=== PATIENT | male | born 2000 | race Caucasian/White ===

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

== ENCOUNTER 2019-01-13 08:32 | Emergency (ER) | payer SELFPAY ==
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
[2019-01-13 09:39] VITALS: BP 126/79; TEMP 99.3; O2SAT 98
[2019-01-13] MEDS ORDERED: ACETAMINOPHEN 500 MG TAB ONE (09:39)
== END 2019-01-13 09:29 | disposition home or self-care (01) ==
LOC: ER 08:32
DX: M62.830 Muscle spasm of back (principal); V59.9XXA Occupant (driver) (passenger) of pick-up truck or van injured in unspecified traffic accident, initial encounter; F17.210 Nicotine dependence, cigarettes, uncomplicated
CPT/HCPCS: 99284

== ENCOUNTER 2019-02-02 11:35 | Emergency (ER) | payer SELFPAY ==
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
--- NOTE | 2019-02-02 11:50 | EDPHYS ---
Physician Documentation [facility] Name: Walt Ramirez Jr Age: 18 yrs Sex: Male : 2000 Arrival Date: 02/02/2019 Time: 11:38 Bed 20 Private MD: ED Physician Jermaine Weir HPI: 02/02 12:02 This 18 yrs old Male presents to ER via Ambulatory with complaints of Rash. kb 12:02 The patient's rash thought to be caused by Contact allergy. The rash is located on the kb body diffusely. Onset: The symptoms/episode began/occurred 2 day(s) ago. Associated signs and symptoms: Pertinent positives: itching. Severity of symptoms: At their worst the symptoms were moderate in the emergency department the symptoms are unchanged. Treatment given at home: OTC lotion/cream. The patient has not experienced similar symptoms in the past. The patient has not recently seen a physician. Historical: - Allergies: 11:42 No Known Allergies; aj - Home Meds: 11:42 None [Active]; aj - PMHx: 11:42 ADD/ADHD; Asthma; aj - PSHx: 11:42 None; aj - Immunization history:: Adult Immunizations up to date, Last tetanus immunization: up to date. - Social history:: Smoking status: Patient/guardian denies using tobacco. - Ebola Screening: : Patient negative for fever greater than or equal to 101.5 degrees Fahrenheit, and additional compatible Ebola Virus Disease symptoms Patient denies exposure to infectious person Patient denies travel to an Ebola-affected area in the 21 days before illness onset No symptoms or risks identified at this time. ROS: 12:01 Constitutional: Negative for fever, chills, and weight loss, Cardiovascular: Negative kb for chest pain, palpitations, and edema, Respiratory: Negative for shortness of breath, cough, wheezing, and pleuritic chest pain, Abdomen/GI: Negative for abdominal pain, nausea, vomiting, diarrhea, and constipation, MS/Extremity: Negative for injury and deformity, Neuro: Negative for headache, weakness, numbness, tingling, and seizure. 12:01 Skin: Positive for rash, diffusely. Exam: 12:01 Constitutional: This is a well developed, well nourished patient who is awake, alert, kb and in no acute distress. Head/Face: Normocephalic, atraumatic. Chest/axilla: Normal chest wall appearance and motion. Nontender with no deformity. No lesions are appreciated. Cardiovascular: Regular rate and rhythm with a normal S1 and S2. No gallops, murmurs, or rubs. Normal PMI, no JVD. No pulse deficits. Respiratory: Lungs have equal breath sounds bilaterally, clear to auscultation and percussion. No rales, rhonchi or wheezes noted. No increased work of breathing, no retractions or nasal flaring. Abdomen/GI: Soft, non-tender, with normal bowel sounds. No distension or tympany. No guarding or rebound. No evidence of tenderness throughout. Back: No spinal tenderness. No costovertebral tenderness. Full range of motion. MS/ Extremity: Pulses equal, no cyanosis. Neurovascular intact. Full, normal range of motion. Neuro: Awake and alert, GCS 15, oriented to person, place, time, and situation. Cranial nerves II-XII grossly intact. Motor strength 5/5 in all extremities. Sensory grossly intact. Cerebellar exam normal. Normal gait. 12:01 Skin: rash a moderate rash is noted, consistent with contact dermatitis, and is diffusely located. Vital Signs: 11:42 BP 131 / 75; Pulse 75; Resp 19; Temp 98.8; Pulse Ox 100% on R/A; Weight 86.18 kg; aj Height 6 ft. 0 in. (182.88 cm); 12:11 BP 130 / 70; Pulse 74; Resp 18; Pulse Ox 100% on R/A; hj 11:42 Body Mass Index 25.77 (86.18 kg, 182.88 cm) aj MDM: 11:45 Patient medically screened. kb 12:00 Data reviewed: vital signs, nurses notes. Data interpreted: Pulse oximetry: on room air kb is 100 %. Interpretation: normal. Counseling: I had a detailed discussion with the patient and/or guardian regarding: the historical points, exam findings, and any diagnostic results supporting the discharge/admit diagnosis, the need for outpatient follow up, a family practitioner, to return to the emergency department if symptoms worsen or persist or if there are any questions or concerns that arise at home. Administered Medications: 12:05 Drug: SOLU-Medrol 125 mg Route: IM; Site: left gluteus; aa5 12:11 Follow up: Response: No adverse reaction 12:06 Drug: Pepcid 20 mg Route: PO; aa5 12:11 Follow up: Response: No adverse reaction Disposition: 12:17 Co-signature as Attending Physician, Jermaine Weir MD. rn Disposition: 02/02/19 11:49 Discharged to Home. Impression: Allergic contact dermatitis due to plants, except food. - Condition is Stable. - Discharge Instructions: Poison Elizabeth Dermatitis, [id number], Contact Dermatitis, [id number]. - Prescriptions for Pepcid 20 mg Oral Tablet - take 1 tablet by ORAL route every 12 hours for 5 days; 10 tablet. Prednisone 20 mg Oral Tablet - take 1 tablet by ORAL route once daily for 5 days; 5 tablet. - Medication Reconciliation Form, Thank You Letter, Antibiotic Education, Prescription Opioid Use form. - Follow up: Emergency Department; When: As needed; Reason: Worsening of condition. Follow up: Private Physician; When: 2 - 3 days; Reason: Recheck today's complaints, Continuance of care, Re-evaluation by your physician. Signatures: Ashley Jensen, CORPORATE DEVELOPMENT ASSOCIATE-C CORPORATE DEVELOPMENT ASSOCIATE-Ckb Lala Conti, RN Jermaine Aviles MD MD rn Calderon, Audri, RN RN aaGabino Hdez RN RN Corrections: (The following items were deleted from the chart) 12:13 11:49 02/02/2019 11:49 Discharged to Home. Impression: Allergic contact dermatitis due hj to plants, except food. Condition is Stable. Forms are Medication Reconciliation Form, Thank You Letter, Antibiotic Education, Prescription Opioid Use. Follow up: Emergency Department; When: As needed; Reason: Worsening of condition. Follow up: Private Physician; When: 2 - 3 days; Reason: Recheck today's complaints, Continuance of care, Re-evaluation by your physician. kb
[2019-02-02] MEDS ORDERED: METHYLPREDNISOLONE 125 MG INJ ONE (12:14)
[2019-02-02] MEDS ORDERED: FAMOTIDINE 20 MG TAB ONE (12:14)
[2019-02-02 12:20] VITALS: TEMP 98.8; O2SAT 100
[2019-02-02 12:22] VITALS: BP 130/70
== END 2019-02-02 12:13 | disposition home or self-care (01) ==
LOC: ER 11:35
DX: L23.7 Allergic contact dermatitis due to plants, except food (principal)
CPT/HCPCS: 96372; 99282; J2930

== ENCOUNTER 2019-11-03 03:34 | Emergency (ER) | payer SELFPAY ==
[2019-11-03] MEDS ORDERED: LIDOCAINE 1% W/EPI 1:100,000 MDV 20 ML VIAL ONE (04:14)
[2019-11-03] MEDS ORDERED: BUPIVACAINE 0.5% PF 10 ML VIAL ONE (04:17)
[2019-11-03] MEDS ORDERED: LIDOCAINE 1% MPF 5 ML VIAL ONE (04:17)
[2019-11-03] MEDS ORDERED: SMZ./TMP. 800/160 MG TABLET ONE (04:29)
[2019-11-03] MEDS ORDERED: DOXYCYCLINE 100 MG CAP PO ONE (04:29)
--- NOTE | 2019-11-03 04:58 | ER ---
Nurse's Notes [facility] Name: Walt Ramirez Jr Age: 19 yrs Sex: Male : 2000 Arrival Date: 11/03/2019 Time: 03:41 Bed 3 Private MD: Diagnosis: Cutaneous abscess of right hand-right index finger Presentation: 11/03 03:57 Presenting complaint: Patient states: I have had a blister for the past to days o my jb4 right index finger. I let it go thinking it would get better but it got worse. Now my finger is swollen and there is pus coming out. Transition of care: patient was not received from another setting of care. Onset of symptoms was November 01, 2019. Risk Assessment: Do you want to hurt yourself or someone else? Patient reports no desire to harm self or others. Initial Sepsis Screen: Does the patient meet any 2 criteria? No. Patient's initial sepsis screen is negative. Does the patient have a suspected source of infection? No. Patient's initial sepsis screen is negative. Care prior to arrival: None. 03:57 Method Of Arrival: Ambulatory jb4 03:57 Acuity: INDU 4 jb4 Historical: - Allergies: 04:01 No Known Allergies; jb4 - Home Meds: 04:01 None [Active]; jb4 - PMHx: 04:01 ADD/ADHD; Asthma; jb4 - PSHx: 04:01 wisdom teeth; jb4 - Immunization history:: Adult Immunizations up to date. - Coronavirus screen:: The patient has NOT traveled to [place] in the past 14 days. Proceed with normal triage process as indicated. The patient has NOT had contact with known/suspected case of Coronavirus? Proceed with normal triage procedures. - Social history:: Smoking status: Patient reports the use of cigarette tobacco products, smokes one-half pack cigarettes per day, Patient/guardian denies using alcohol, street drugs. - Family history:: not pertinent. - Ebola Screening: : No symptoms or risks identified at this time. Screenin:02 Abuse screen: Denies threats or abuse. Nutritional screening: No deficits noted. jb4 Tuberculosis screening: No symptoms or risk factors identified. Fall Risk None identified. Assessment: 04:02 General: Appears in no apparent distress. uncomfortable, Behavior is calm, cooperative, jb4 appropriate for age. Pain: Complains of pain in dorsal aspect of middle phalanx of right index finger and palmar aspect of middle phalanx of right index finger Pain does not radiate. Pain currently is 9 out of 10 on a pain scale. Quality of pain is described as throbbing, Pain began 2-3 days ago. Is continuous. Neuro: Level of Consciousness is awake, alert, obeys commands, Oriented to person, place, time, situation. Cardiovascular: Patient's skin is warm and dry. Respiratory: Airway is patent Respiratory effort is even, unlabored, Respiratory pattern is regular, symmetrical. GI: No signs and/or symptoms were reported involving the gastrointestinal system. : No signs and/or symptoms were reported regarding the genitourinary system. EENT: No signs and/or symptoms were reported regarding the EENT system. Derm: Skin is pink, warm \T\ dry. Musculoskeletal: Circulation, motion, and sensation intact. Range of motion: intact in all extremities, Swelling present in dorsal aspect of middle phalanx of right index finger and palmar aspect of middle phalanx of right index finger. 05:11 Reassessment: Patient appears in no apparent distress at this time. Patient and/or jb4 family updated on plan of care and expected duration. Pain level reassessed. Patient is alert, oriented x 3, equal unlabored respirations, skin warm/dry/pink. Pt verbalized understanding of d/c and follow up instructions. Ambulated out of ED with steady gait. Vital Signs: 04:01 BP 129 / 88; Pulse 71; Resp 16; Temp 98.1(O); Pulse Ox 100% on R/A; Weight 77.11 kg jb4 (R); Height 6 ft. 0 in. (182.88 cm); Pain 9/10; 04:01 Body Mass Index 23.06 (77.11 kg, 182.88 cm) jb4 ED Course: 03:41 Patient arrived in ED. ag3 03:42 Cortez Royal MD is Attending Physician. shailesh 03:49 Dick Reyes, MYAH is Primary Nurse. jb4 03:59 Triage completed. jb4 04:01 Arm band placed on right wrist. jb4 04:02 Patient has correct armband on for positive identification. Bed in low position. Call jb4 light in reach. Side rails up X 1. Pulse ox on. NIBP on. 04:02 Ice pack to injury. jb4 04:33 Hand Right 3 View XRAY In Process Unspecified. EDMS 04:37 Assist provider with I \T\ D: of an abscess on Right index finger. Set up I\T\D tray. yokasta 4 Performed by Cortez Royal MD Culture sent to lab. Wound packed. iodoform gauze, Dressing with 4X4s. 04:57 Ryan Poe MD is Referral Physician. [facility] 05:11 Patient did not have IV access during this emergency room visit. jb4 Administered Medications: 04:28 Drug: Doxycycline 200 mg Route: PO; jb4 05:11 Follow up: Response: No adverse reaction jb4 04:28 Drug: Bactrim (160 mg-800 mg (DS) 1 tablet Route: PO; jb4 05:10 Follow up: Response: No adverse reaction jb4 04:33 Drug: Bupivacaine (0.5 %) 5 ml {Note: Administered by ED provider..} Volume: 10 ml; jb4 Route: Infiltration; 05:11 Follow up: Response: No adverse reaction jb4 04:33 Drug: Lidocaine (1 %) 5 ml {Note: Administered by ED provider..} Volume: 5 ml; Route: jb4 Infiltration; 05:11 Follow up: Response: No adverse reaction jb4 Outcome: 04:57 Discharge ordered by . [facility] 05:11 Discharged to home ambulatory, with friend. jb4 05:11 Condition: stable 05:11 Discharge instructions given to patient, Instructed on discharge instructions, follow up and referral plans. medication usage, Demonstrated understanding of instructions, follow-up care, medications, Prescriptions given X 3. 05:12 Patient left the ED. jb4 Addendum: 11/07/2019 10:12 Addendum: Culture Results: Positive urine culture. No further action required. Bacteria i w sensitive to prescribed antibiotic. Signatures: Dispatcher [employer] EDMS Cortez Royal MD MD cha Williams, Irene, RN RN iw Bryson, James, RN RN jb4 Yasemin Jarrell 3
--- NOTE | 2019-11-03 04:58 | EDPHYS ---
Physician Documentation [facility] Name: Walt Ramirez Jr Age: 19 yrs Sex: Male : 2000 Arrival Date: 11/03/2019 Time: 03:41 Bed 3 Private MD: ED Physician Cortez Royal HPI: 11/03 04:05 This 19 yrs old Male presents to ER via Ambulatory with complaints of Finger shailesh Injury. 04:05 Trauma demographics: County: The injury occurred in [place]. Mechanism of injury: shailesh blister. Associated injuries: The patient sustained palmar aspect of middle phalanx of right index finger, decreased range of motion, painful injury, swelling. Historical: - Allergies: 04:01 No Known Allergies; jb4 - Home Meds: 04:01 None [Active]; jb4 - PMHx: 04:01 ADD/ADHD; Asthma; jb4 - PSHx: 04:01 wisdom teeth; jb4 - Immunization history:: Adult Immunizations up to date. - Coronavirus screen:: The patient has NOT traveled to [place] in the past 14 days. Proceed with normal triage process as indicated. The patient has NOT had contact with known/suspected case of Coronavirus? Proceed with normal triage procedures. - Social history:: Smoking status: Patient reports the use of cigarette tobacco products, smokes one-half pack cigarettes per day, Patient/guardian denies using alcohol, street drugs. - Family history:: not pertinent. - Ebola Screening: : No symptoms or risks identified at this time. ROS: 04:05 Constitutional: Negative for fever, chills, and weight loss, Eyes: Negative for injury, shailesh pain, redness, and discharge, ENT: Negative for injury, pain, and discharge, Neck: Negative for injury, pain, and swelling, Cardiovascular: Negative for chest pain, palpitations, and edema, Respiratory: Negative for shortness of breath, cough, wheezing, and pleuritic chest pain, Abdomen/GI: Negative for abdominal pain, nausea, vomiting, diarrhea, and constipation, Back: Negative for injury and pain, : Negative for injury, bleeding, discharge, and swelling, Skin: Negative for injury, rash, and discoloration, Neuro: Negative for headache, weakness, numbness, tingling, and seizure, Psych: Negative for depression, anxiety, suicide ideation, homicidal ideation, and hallucinations, Allergy/Immunology: Negative for hives, rash, and allergies, Endocrine: Negative for neck swelling, polydipsia, polyuria, polyphagia, and marked weight changes, Hematologic/Lymphatic: Negative for swollen nodes, abnormal bleeding, and unusual bruising. 04:05 MS/extremity: Positive for decreased range of motion, pain, swelling, tenderness, of the right hand and palmar aspect of middle phalanx of right index finger. Exam: 04:05 Constitutional: This is a well developed, well nourished patient who is awake, alert, shailesh and in no acute distress. Head/Face: Normocephalic, atraumatic. Eyes: Pupils equal round and reactive to light, extra-ocular motions intact. Lids and lashes normal. Conjunctiva and sclera are non-icteric and not injected. Cornea within normal limits. Periorbital areas with no swelling, redness, or edema. ENT: Nares patent. No nasal discharge, no septal abnormalities noted. Tympanic membranes are normal and external auditory canals are clear. Oropharynx with no redness, swelling, or masses, exudates, or evidence of obstruction, uvula midline. Mucous membranes moist. Neck: Trachea midline, no thyromegaly or masses palpated, and no cervical lymphadenopathy. Supple, full range of motion without nuchal rigidity, or vertebral point tenderness. No Meningismus. Chest/axilla: Normal chest wall appearance and motion. Nontender with no deformity. No lesions are appreciated. Cardiovascular: Regular rate and rhythm with a normal S1 and S2. No gallops, murmurs, or rubs. Normal PMI, no JVD. No pulse deficits. Respiratory: Lungs have equal breath sounds bilaterally, clear to auscultation and percussion. No rales, rhonchi or wheezes noted. No increased work of breathing, no retractions or nasal flaring. Abdomen/GI: Soft, non-tender, with normal bowel sounds. No distension or tympany. No guarding or rebound. No evidence of tenderness throughout. Back: No spinal tenderness. No costovertebral tenderness. Full range of motion. Male : Normal genitalia with no discharge or lesions. Skin: Warm, dry with normal turgor. Normal color with no rashes, no lesions, and no evidence of cellulitis. Neuro: Awake and alert, GCS 15, oriented to person, place, time, and situation. Cranial nerves II-XII grossly intact. Motor strength 5/5 in all extremities. Sensory grossly intact. Cerebellar exam normal. Normal gait. Psych: Awake, alert, with orientation to person, place and time. Behavior, mood, and affect are within normal limits. 04:05 Musculoskeletal/extremity: ROM: limited active range of motion due to pain, limited passive range of motion due to pain, Circulation is intact in all extremities. Sensation intact. Compartment Syndrome exam of affected extremity: is normal. Vital Signs: 04:01 BP 129 / 88; Pulse 71; Resp 16; Temp 98.1(O); Pulse Ox 100% on R/A; Weight 77.11 kg jb4 (R); Height 6 ft. 0 in. (182.88 cm); Pain 9/10; 04:01 Body Mass Index 23.06 (77.11 kg, 182.88 cm) jb4 Procedures: 04:05 I \T\ D: Incision and drainage was performed for an abscess of the right palmar aspect of shailesh middle phalanx of right index finger Prepped with Betadine, Anesthetized with 3 ml's 1% Lidocaine. .5% MARCAINE. Incised with #11 blade. Drained small amount purulent fluid. Packed with iodoform gauze, Dressing: non-Adherent dressing, the patient tolerated the procedure well. MDM: 03:42 Patient medically screened. [facility] 04:05 Data reviewed: vital signs, nurses notes, radiologic studies. [facility] 11/03 04:20 Order name: Wound Culture [facility] 11/03 04:15 Order name: Hand Right 3 View XRAY [facility] 11/03 04:15 Order name: Dressing - Wound; Complete Time: 05:11 [facility] 11/03 04:15 Order name: Gloves, Sterile; Complete Time: 04:23 [facility] 11/03 04:15 Order name: Setup Suture Tray; Complete Time: 04:21 [facility] 11/03 04:15 Order name: Wound Care; Complete Time: 05:10 [facility] Administered Medications: 04:28 Drug: Doxycycline 200 mg Route: PO; jb4 05:11 Follow up: Response: No adverse reaction 4 04:28 Drug: Bactrim (160 mg-800 mg (DS) 1 tablet Route: PO; jb4 05:10 Follow up: Response: No adverse reaction jb4 04:33 Drug: Bupivacaine (0.5 %) 5 ml {Note: Administered by ED provider..} Volume: 10 ml; jb4 Route: Infiltration; 05:11 Follow up: Response: No adverse reaction jb4 04:33 Drug: Lidocaine (1 %) 5 ml {Note: Administered by ED provider..} Volume: 5 ml; Route: jb4 Infiltration; 05:11 Follow up: Response: No adverse reaction jb4 Disposition: 11/03/19 04:57 Discharged to Home. Impression: Cutaneous abscess of right hand - right index finger. - Condition is Stable. - Discharge Instructions: Skin Abscess, Incision and Drainage, Skin Abscess, [id number], Incision and Drainage, Care After. - Prescriptions for Tylenol- Codeine #3 300-30 mg Oral Tablet - take 2 tablets by ORAL route every 6 hours As needed; 26 tablet. Doxycycline Hyclate 100 mg Oral Tablet - take 1 tablet by ORAL route every 12 hours; 20 tablet. Bactrim DS 800- 160 mg Oral Tablet - take 1 tablet by ORAL route every 12 hours for 10 days; 20 tablet. - Medication Reconciliation Form, Thank You Letter, Antibiotic Education, Prescription Opioid Use form. - Follow up: Private Physician; When: 2 - 3 days; Reason: Recheck today's complaints, Continuance of care, Re-evaluation by your physician. Follow up: Ryan Poe; When: 2 - 3 days; Reason: Recheck today's complaints, Re-evaluation by your physician. - Problem is new. - Symptoms have improved. Signatures: Dispatcher [employer] EDMS Cortez Royal MD MD cha Bryson, James, RN RN jb4 Corrections: (The following items were deleted from the chart) 05:12 04:57 11/03/2019 04:57 Discharged to Home. Impression: Cutaneous abscess of right hand jb4 - right index finger. Condition is Stable. Discharge Instructions: Skin Abscess, Incision and Drainage, Skin Abscess, [id number], Incision and Drainage, Care After. Prescriptions for Tylenol-Codeine #3 300-30 mg Oral Tablet - take 2 tablets by ORAL route every 6 hours As needed; 26 tablet, Doxycycline Hyclate 100 mg Oral Tablet - take 1 tablet by ORAL route every 12 hours; 20 tablet, Bactrim DS 800-160 mg Oral Tablet - take 1 tablet by ORAL route every 12 hours for 10 days; 20 tablet. and Forms are Medication Reconciliation Form, Thank You Letter, Antibiotic Education, Prescription Opioid Use. Follow up: Private Physician; When: 2 - 3 days; Reason: Recheck today's complaints, Continuance of care, Re-evaluation by your physician. Follow up: Ryan Poe; When: 2 - 3 days; Reason: Recheck today's complaints, Re-evaluation by your physician. Problem is new. Symptoms have improved. shailesh
[2019-11-03 05:47] VITALS: BP 129/88; TEMP 98.1; O2SAT 100
--- NOTE | 2019-11-03 09:01 | RAD REPORT ---
EXAM DESCRIPTION: RAD - Hand Right 3 View - 11/03/2019 4:32 am CLINICAL HISTORY: PAIN Pain and swelling. COMPARISON: Hand Right 3 View dated 08/17/2018 FINDINGS: Soft tissue swelling affects the second finger. No fracture, dislocation or aggressive mar row lesion.
== END 2019-11-03 05:12 | disposition home or self-care (01) ==
LOC: ER 03:34
PROC: 0H9FXZZ Drainage of Right Hand Skin, External Approach (ICD-10-PCS; principal; 2019-11-03)
DX: L02.511 Cutaneous abscess of right hand (principal)
CPT/HCPCS: 87070; 87077; 87186; 87205

== ENCOUNTER 2020-07-09 03:18 | Emergency (ER) | payer SELFPAY ==
[2020-07-09] MEDS ORDERED: MEPERIDINE HCL 50 MG/ML ONE (03:47)
[2020-07-09] MEDS ORDERED: PROMETHAZINE INJ 25 MG/ML AMP ONE (03:47)
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
[2020-07-09] MEDS ORDERED: HYDROCODONE/APAP 10/325 TAB ONE (04:05)
[2020-07-09 04:22] VITALS: BP 151/107; TEMP 98.6; O2SAT 100
== END 2020-07-09 04:13 | disposition home or self-care (01) ==
LOC: ER 03:18
DX: T22.211A Burn of second degree of right forearm, initial encounter (principal); T22.231A Burn of second degree of right upper arm, initial encounter; T23.261A Burn of second degree of back of right hand, initial encounter; T31.0 Burns involving less than 10% of body surface; F17.210 Nicotine dependence, cigarettes, uncomplicated; X08.8XXA Exposure to other specified smoke, fire and flames, initial encounter; Y93.G3 Activity, cooking and baking; Y92.009 Unspecified place in unspecified non-institutional (private) residence as the place of occurrence of the external cause
CPT/HCPCS: 96372; 99283; J2175; J2550

== ENCOUNTER 2023-04-30 16:34 | Emergency (ER) | payer SELFPAY ==
--- NOTE | 2023-04-30 17:11 | ER ---
Nurse's Notes [facility] Name: Walt Ramirez Jr Age: 22 yrs Sex: Male : 2000 Arrival Date: 04/30/2023 Time: 16:34 Bed 9 Private MD: Diagnosis: Otitis media, unspecified, right ear Presentation: 04/30 17:07 Chief complaint: Patient states: right ear pain. Pt states that over the last 2 days, cm10 "I have had a lot of discharge" from his right ear. Coronavirus screen: Client denies travel out of the [place] in the last 14 days. Ebola Screen: Patient denies travel to an Ebola-affected area in the 21 days before illness onset. No symptoms or risks identified at this time. Initial Sepsis Screen: Does the patient meet any 2 criteria? No. Patient's initial sepsis screen is negative. Does the patient have a suspected source of infection? No. Patient's initial sepsis screen is negative. Risk Assessment: Do you want to hurt yourself or someone else? Patient reports no desire to harm self or others. Onset of symptoms was April 30, 2023. 17:07 Method Of Arrival: Ambulatory cm10 17:07 Acuity: INDU 4 cm10 Triage Assessment: 19:03 Pain: Complains of pain in right ear. ap3 19:56 General: Appears in no apparent distress. Behavior is calm, cooperative. kd3 Historical: - Allergies: 17:09 No Known Allergies; cm10 - PMHx: 17:09 ADD/ADHD; Asthma; cm10 - Immunization history:: Adult Immunizations unknown. - Social history:: Smoking status: Patient denies any tobacco usage or history of. Screenin:00 [facility] ED Fall Risk Assessment (Adult) History of falling in the last 3 months, ap3 including since admission No falls in past 3 months (0 pts). Abuse screen: Denies threats or abuse. Nutritional screening: No deficits noted. Tuberculosis screening: No symptoms or risk factors identified. Assessment: 19:00 Reassessment: patient had a syncopal episode post antibiotic injection. vital signs ap3 obtained and provider notified. Vital Signs: 17:07 BP 135 / 88; Pulse 83; Resp 16; Temp 98.2(TE); Pulse Ox 99% ; Weight 90.72 kg; Height 6 cm10 ft. 0 in. ; Pain 5/10; 19:03 BP 98 / 60; Pulse 60; Pulse Ox 100% on R/A; ap3 19:57 BP 111 / 66; Pulse 83; Resp 16; Pulse Ox 99% on R/A; kd3 17:07 Body Mass Index 27.12 (90.72 kg, 182.88 cm) cm10 17:07 Pain Scale: Adult cm10 ED Course: 16:38 Patient arrived in ED. ts1 16:39 Betty Bennett PA-C is PHCP. sb4 16:39 Cortez Royal MD is Attending Physician. sb4 17:09 Triage completed. cm10 17:10 Arm band placed on Patient placed in waiting room. cm10 19:00 Lala López, RN is Primary Nurse. ap3 19:03 Patient has correct armband on for positive identification. Bed in low position. Call ap3 light in reach. Side rails up X2. Pulse ox on. NIBP on. 19:56 Provided Education on: . kd3 19:56 No provider procedures requiring assistance completed. Patient did not have IV access kd3 during this emergency room visit. Administered Medications: 18:55 Drug: Rocephin (cefTRIAXone) IM 1 grams Route: IM; Site: left deltoid; ap3 19:57 Follow up: Response: No adverse reaction kd3 Medication: 19:56 VIS not applicable for this client. kd3 Outcome: 17:11 Discharge ordered by . sb4 19:56 Discharged to home ambulatory. kd3 19:56 Condition: stable 19:56 Discharge instructions given to patient, Instructed on discharge instructions, follow up and referral plans. medication usage, Demonstrated understanding of instructions, follow-up care, medications, Prescriptions given X 1. 19:57 Patient left the ED. kd3 Signatures: Lala López, RN RN ap3 Dixie Jefferson RN RN kd3 Betty Bennett PA-C PA-C sb4 Rajni Bauman PAS PAS ts1 Kacey Washburn, RN RN cm10
--- NOTE | 2023-04-30 17:11 | EDPHYS ---
Physician Documentation [facility] Name: Walt Ramirez Jr Age: 22 yrs Sex: Male : 2000 Arrival Date: 04/30/2023 Time: 16:34 Bed 9 Private MD: ED Physician Cortez Royal HPI: 04/30 17:29 This 22 yrs old Male presents to ER via Ambulatory with complaints of Ear Pain. sb4 17:29 The patient presents with drainage, pain, swelling. The complaints affect the right sb4 ear. Onset: The symptoms/episode began/occurred 2 day(s) ago. Modifying factors: The symptoms are alleviated by nothing, the symptoms are aggravated by nothing. Associated signs and symptoms: Pertinent positives: sore throat, Pertinent negatives: cough, fever, lightheadedness, nausea, rhinorrhea. Severity of symptoms: Pain is currently a 5 / 10. The patient has experienced a previous episode, many years ago. The patient has not recently seen a physician. Historical: - Allergies: 17:09 No Known Allergies; cm10 - PMHx: 17:09 ADD/ADHD; Asthma; cm10 - Immunization history:: Adult Immunizations unknown. - Social history:: Smoking status: Patient denies any tobacco usage or history of. ROS: 17:29 Constitutional: Negative for fever, chills, and weight loss. sb4 17:29 ENT: Positive for drainage from ear(s), ear pain, sore throat, Negative for rhinorrhea, sinus congestion, difficulty swallowing, difficulty handling secretions. 17:29 All other systems are negative. Exam: 17:29 Constitutional: This is a well developed, well nourished patient who is awake, alert, sb4 and in no acute distress. Head/Face: Normocephalic, atraumatic. Cardiovascular: Regular rate and rhythm with a normal S1 and S2. Respiratory: Lungs have equal breath sounds bilaterally, clear to auscultation and percussion. No rales, rhonchi or wheezes noted. No increased work of breathing, no retractions or nasal flaring. Abdomen/GI: Soft, non-tender, no distension. Skin: Warm, dry with normal turgor. Normal color with no rashes, no lesions, and no evidence of cellulitis. MS/ Extremity: Pulses equal, no cyanosis. Neurovascular intact. Full, normal range of motion. 17:29 ENT: External ear(s): are unremarkable, Ear canal(s): erythema, that is moderate, of the right canal, swelling, that is moderate, of the right canal, TM's: erythema, that is moderate, on the right. Vital Signs: 17:07 BP 135 / 88; Pulse 83; Resp 16; Temp 98.2(TE); Pulse Ox 99% ; Weight 90.72 kg; Height 6 cm10 ft. 0 in. ; Pain 5/10; 19:03 BP 98 / 60; Pulse 60; Pulse Ox 100% on R/A; ap3 19:57 BP 111 / 66; Pulse 83; Resp 16; Pulse Ox 99% on R/A; kd3 17:07 Body Mass Index 27.12 (90.72 kg, 182.88 cm) cm10 17:07 Pain Scale: Adult cm10 MDM: 16:39 Patient medically screened. sb4 17:29 Differential diagnosis: otitis media, otitis externa, ruptured TM, foreign body, acute sb4 otalgia, cerumen impaction. Data reviewed: vital signs, nurses notes, and as a result, I will discharge patient, administer antibiotics Rocephin. Counseling: I had a detailed discussion with the patient and/or guardian regarding the historical points, exam findings, and any diagnostic results supporting the discharge/admit diagnosis, to return to the emergency department if symptoms worsen or persist or if there are any questions or concerns that arise at home. Administered Medications: 18:55 Drug: Rocephin (cefTRIAXone) IM 1 grams Route: IM; Site: left deltoid; ap3 19:57 Follow up: Response: No adverse reaction kd3 Disposition Summary: 04/30/23 17:11 Discharge Ordered Location: Home sb4 Problem: an ongoing problem sb4 Symptoms: are unchanged sb4 Condition: Stable sb4 Diagnosis - Otitis media, unspecified, right ear sb4 Followup: sb4 - With: Private Physician - When: As needed - Reason: Recheck today's complaints, Continuance of care, Re-evaluation by your physician Discharge Instructions: - Discharge Summary Sheet sb4 - Otitis Media, Adult sb4 Forms: - Medication Reconciliation Form sb4 - Thank You Letter sb4 - Antibiotic Education sb4 - Prescription Opioid Use sb4 - Patient Portal Instructions sb4 - Leadership Thank You Letter sb4 Prescriptions: - Amoxicillin 875 mg Oral Tablet - take 1 tablet by ORAL route every 12 hours for 10 days; 20 tablet; Refills: 0, sb4 Product Selection Permitted Signatures: Lala López RN RN ap3 Betty Bennett PA-C PA-C sb4 Martinez, Clarissa, RN RN cm10 Dixie Jefferson RN kd3
[2023-04-30] MEDS ORDERED: CEFTRIAXONE 1000 MG/VIAL ONE (18:38)
[2023-04-30 20:31] VITALS: TEMP 98.2
[2023-04-30 20:33] VITALS: BP 111/66; O2SAT 99
== END 2023-04-30 19:57 | disposition home or self-care (01) ==
LOC: ER 16:34
DX: H66.91 Otitis media, unspecified, right ear (principal)
CPT/HCPCS: J0696

== ENCOUNTER 2024-01-16 02:20 | Emergency (ER) | payer SELFPAY ==
[2024-01-16] MEDS ORDERED: NA CHLORIDE 0.9% 1,000 ML ONE (02:34)
[2024-01-16] MEDS ORDERED: MORPHINE 4 MG/ML SYR ONE ×2 (02:42→05:17)
[2024-01-16] MEDS ORDERED: CEFAZOLIN SODIUM 1 GM/VIAL ONE (03:51)
[2024-01-16] MEDS ORDERED: NA CHLORIDE 0.9% 100 ML ONE (03:52)
[2024-01-16] MEDS ORDERED: LIDOCAINE 1% 20 ML MDV ONE (04:31)
[2024-01-16] MEDS ORDERED: LIDOCAINE 2% W/EPI 1:200,000 MPF 20 ML VIAL IM ONE (04:33)
[2024-01-16] MEDS ORDERED: TDAP (DIPHTH,PERTUSS(ACELL),TET VAC) 0.5 ML VIAL IMVAC ONE (04:49)
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
[2024-01-16 12:15] LABS: Sqamous Epithelial None Seen /HPF (None Seen); Urine Bacteria None Seen /HPF (<20); Urine Culture Reflex Order NOT NEEDED; Urine Mucus Slight /HPF (None Seen); Urine RBC None Seen /HPF (None Seen); Urine WBC <5 /HPF (<5)
[2024-01-16 12:16] LABS: Specific Gravity 1.021 (1.005-1.030); Urine Bilirubin NEGATIVE (Negative); Urine Blood Negative (Negative); Urine Clarity Clear (Clear); Urine Color Colorless (Yellow); Urine Glucose NEGATIVE (Negative); Urine Ketones NEGATIVE (Negative); Urine Microscopic Reflex YN NO UMIC; Urine Nitrite NEGATIVE (Negative); Urine Protein NEGATIVE (Negative); Urine Urobilinogen Normal (Normal); Urine pH 5.5 (5.0-7.0)
[2024-01-17 14:32] VITALS: BP 106/53; TEMP 97.6; O2SAT 100
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
== END 2024-01-16 05:51 | disposition home or self-care (01) ==
LOC: ER 02:20
PROC: 0HQ0XZZ Repair Scalp Skin, External Approach (ICD-10-PCS; principal; 2024-01-16)
PROC: 0HQLXZZ Repair Left Lower Leg Skin, External Approach (ICD-10-PCS; 2024-01-16)
DX: S82.62XA Displaced fracture of lateral malleolus of left fibula, initial encounter for closed fracture (principal); S01.01XA Laceration without foreign body of scalp, initial encounter; S81.012A Laceration without foreign body, left knee, initial encounter; S60.512A Abrasion of left hand, initial encounter; S60.511A Abrasion of right hand, initial encounter; S20.419A Abrasion of unspecified back wall of thorax, initial encounter
CPT/HCPCS: 70450; 71260; 72125; 74177; 81003; 86850; 86900; 86901; 96361; 96365; 96372; 96375; 99285; J0690; J2001; J7030; Q9967

== ENCOUNTER 2024-07-11 03:32 | Emergency (ER) | payer OTHER ==
--- OUTSIDE RECORDS SUMMARY | 2024-07-11 03:35 | XMS REPORT | Continuity of Care Document ---
Author Name Unknown Address [address] [facility] [address] [place] [address] [facility] thconnect Address [address] [facility] [place] [address] Care Team Providers Care Aquatic Biologist Name Role Phone Provider, Unknown Home Health Primary Care Physi artemio Unavailable Luh France MD Attending Clinician [phone] [facility] Attending Clinician Unav ailable Annabel Michaud APRN Attending Clinician [phone] JAKOB KRISHNA Attending Clinician Unavail able Payers Payer Name Policy Type Policy Number Effective Date Expirati on Date Source [employer] CHOICE POS II [id number] 2023 00:00:00 Problems Condition Name Condition Details Condition Category Status Onset Date Resolution Date Last Treatment Date Treating Clinician Comments Source Displaced fracture of distal end of left fibula Displaced fracture of distal end of left fibula Disease Active 01-19 00:00: 00 [facility] Sprain of deltoid ligament of left ankle Sprain of deltoid ligament of left ankle Disease Active 01-19 00:00: 00 [facility] Acute left ankle pain Acute left ankle pain Disease Active 01-18 00:00: 00 [facility] Social History Social Habit Start Date Stop Date Quantity Comments Source History of tobacco use Cigarette Smoker [facility] Sexual orientation [facility] Alcoholic beverage intake 2024-03-30 00:00:00 2024-03-30 00:00:00 Current drinker of alcohol (finding) [facility] History of Social function 2024-03-30 00:00:00 2024-03-30 00:00:00 [facility] Tobacco use and exposure 2024-01-20 00:00:00 2024-01-20 00:00:00 Smokeless tobacco non-user [facility] Alcohol Comment 2024-01-20 00:00:00 2024-01-20 00:00:00 occasionally [facility] Sex assigned at 2000 00:00:00 2000 00:00:00 [facility] Smoking Status Start Date Stop Date Source Smokes tobacco daily 2024-01-20 00:00:00 [facility] Medications Ordered Medication Name Filled Medication Name Start Date Stop Date Current Medication? Ordering Clinician Indication Dosage Frequency Signature (SIG) Comments Components Source HYDROcodone -acetaminop hen ([place]) 7.5-325 MG tablet 02-02 00:00: 00 Yes [id number] 1{tbl} Take 1 tablet by mouth every 4 (four) hours if needed for severe pain. [facility] traMADol (Ultram) 50 MG tablet 02-02 00:00: 00 Yes [id number] 100mg Q6H Take 2 tablets (100 mg total) by mouth every 6 (six) hours if needed for moderate pain. [facility] ondansetron ODT (Zofran-ODT ) 4 MG disintegrat ing tablet 02-01 00:00: 00 02-09 04:59 :00 No [id number] 4mg Take 1 tablet (4 mg total) by mouth every 8 (eight) hours if needed for vomiting or nausea for up to 7 days. [facility] cephalexin (Keflex) 500 MG capsule 02-01 00:00: 00 02-07 04:59 :00 No [id number] 500mg [id number] 3D Take 1 capsule (500 mg total) by mouth in the morning and 1 capsule (500 mg total) at noon and 1 capsule (500 mg total) in the evening. Do all this for 5 days. [facility] acetaminoph en-codeine (Tylenol w/ Codeine #3) 300-30 MG tablet 01-26 00:00: 00 Yes [id number] 1{tbl} Take 1 tablet by mouth every 4 (four) hours if needed for severe pain. [facility] acetaminoph en-codeine (Tylenol w/ Codeine #3) 300-30 MG tablet 01-20 00:00: 00 01-26 00:00 :00 No [id number] 1{tbl} Take 1 tablet by mouth every 4 (four) hours if needed for severe pain. [facility] GABAPENTIN PO 01-19 08:18: 32 Yes Take by mouth if needed. [facility] traMADol (Ultram) 50 MG tablet 01-19 00:00: 00 Yes [id number] 105 100mg Q6H Take 2 tablets (100 mg total) by mouth every 6 (six) hours if needed for severe pain. [facility] Procedures Procedure Date / Time Performed Performing Clinicia n Source SPLINT APPLICATION 2024-01-20 14:00:00 Annabel Michaud [facility] Encounters Start Date/Time End Date/Time Encounter Type Admission Type Attending [facility] Care Department Encounter ID Source 2024-04-27 09:15:00 2024-04-27 10:40:20 Outpatient [facility] [id number] [facility] 2024-04-27 09:15:00 2024-04-27 10:40:05 [facility] [place] [id number] [facility] 2024-03-30 10:45:00 2024-03-30 11:29:59 [facility] [place] [id number] [facility] 2024-03-30 10:50:00 2024-03-30 11:29:51 Outpatient [facility] [id number] [facility] 2024-03-22 09:15:00 2024-03-22 09:15:00 Outpatient [facility] [id number] [facility] 2024-03-22 09:15:00 2024-03-22 09:15:00 Outpatient [facility] [id number] [facility] 2024-02-23 10:05:00 2024-02-23 11:14:00 Outpatient [facility] [id number] [facility] 2024-02-23 10:00:00 2024-02-23 11:13:45 Office [place] EdilamLuh [place] [facility] [place] 1..840.114 [id number] [facility] 2024-02-23 10:00:00 2024-02-23 10:00:00 Outpatient [facility] [id number] [facility] 2024-02-05 05:23:00 2024-02-05 11:30:[address] [id number] 2024-02-05 08:30:00 2024-02-05 08:30:00 Outpatient [facility] [id number] [facility] 2024-02-04 09:00:00 2024-02-04 12:06:51 [place] [facility] [place] [facility] [place] [id number] [id number] [id number] [id number] [facility] 2024-02-03 10:45:00 2024-02-03 10:45:00 Outpatient BRENDAARMINLUH NICK [facility] [id number] [facility] 2024-01-27 10:30:00 2024-01-27 11:25:43 Office Visit Ananbel Michaud [place] [facility] [place] [id number] [id number] [id number] [id number] [facility] 2024-01-20 00:00:00 2024-01-20 10:36:10 Outpatient [facility] [id number] [facility] 2024-01-20 08:25:00 2024-01-20 10:35:56 Outpatient [facility] [id number] [facility] 2024-01-20 09:00:00 2024-01-20 10:35:39 Office Visit [facility] [place] [facility] [place] [id number] [id number] [id number] [facility] 2024-01-20 10:30:00 2024-01-20 10:30:00 Outpatient GALINA DANIELS JAKOB [facility] [id number] [facility] 2024-01-20 08:00:00 2024-01-20 08:00:00 Outpatient JYOTHIPatelBRIDGER DANIELS JAKOB [facility] [id number] [facility] Results Test Description Test Time Test Comments Results Result Comments Source Splint Application 14:00:00 Antony Trinh ? ? 01/20/2024 ?2:23 PMSplint Application Date/Time: 01/20/2024 9:00 AM Performed by: Antony Trinh Authorized by: Annabel Michaud APRN Consent given by: patientSite marked: site markedTimeout: Immediately prior to procedure a time out was called to verify the correct patient, procedure, equipment, desktop support specialist and site/side marked as requiredInjuryLocation details: left ankleFracture type: trimalleolar fracture ?Pre-procedure assessmentneurovascularly intactRange of motion: reduced ?ProcedureImmobilization: splintSplint/Brace type: short legSupplies used: stockinette, cotton padding, Ortho-Glass and elastic bandagePost-procedure assessmentneurovascularly intactRange of motion: unchangedPatient tolerance: patient tolerated the procedure well with no immediate complications [facility]
--- NOTE | 2024-07-11 03:52 | EDPHYS ---
Physician Documentation [facility] Name: Walt Ramirez Jr Age: 23 yrs Sex: Male : 2000 Arrival Date: 07/11/2024 Time: 03:32 Bed 14 Private MD: ED Physician Jermaine Weir HPI: 07/11 03:47 This 23 yrs old Male presents to ER via Unassigned with complaints of Foot Pain, Feet rn Swelling. 03:47 The patient presents with pain, rash. The complaints affect the left foot. Onset: The rn symptoms/episode began/occurred 2 week(s) ago. Modifying factors: The symptoms are alleviated by nothing, the symptoms are aggravated by nothing. Severity of symptoms: At their worst the symptoms were moderate, in the emergency department the symptoms are unchanged. The patient has experienced similar episodes in the past. Patient is returning from [facility] [place], states battling fungal infection of feet for 2 weeks, now has open wounds and blisters. Denies fever. No trauma or burn. No drainage.. Historical: - Allergies: 03:49 No Known Allergies; lg3 - Home Meds: 03:49 None [Active]; lg3 - PMHx: 03:49 ADD/ADHD; Asthma; lg3 - PSHx: 03:49 left ankle (Asthma); lg3 - Immunization history:: Adult Immunizations up to date. - Infectious Disease History:: Denies. - Family history:: not pertinent. - Social history:: Smoking status: Patient denies any tobacco usage or history of. Patient/guardian denies using alcohol, street drugs. - Hospitalizations: : No recent hospitalization is reported. ROS: 03:47 Constitutional: Negative for fever, chills, and weight loss, MS/Extremity: Positive for rn pain and rash to left foot Exam: 03:47 Constitutional: This is a well developed, well nourished patient who is awake, alert, rn and in no acute distress. MS/ Extremity: Pulses equal, no cyanosis. Neurovascular intact. Full, normal range of motion. Equal circumference. Mild erythema of the left toes, worse in the third fourth and fifth digits, moist skin but no fluctuance or purulence. No gangrene. No extension to proximal foot. Vital Signs: 03:45 BP 141 / 85; Pulse 73; Resp 17 S; Temp 98.1(O); Pulse Ox 99% on R/A; Weight 97.52 kg lg3 (R); Height 6 ft. 0 in. (R); Pain 4/10; 03:45 Body Mass Index 29.16 (97.52 kg, 182.88 cm) lg3 03:45 Pain Scale: Adult lg3 MDM: 03:38 Medical Screening Exam initiated rn 03:47 Differential diagnosis: cellulitis. Data reviewed: vital signs, nurses notes, and as a rn result, I will discharge patient. Counseling: I had a detailed discussion with the patient and/or guardian regarding the historical points, exam findings, and any diagnostic results supporting the discharge/admit diagnosis, the need for outpatient follow up, to return to the emergency department if symptoms worsen or persist or if there are any questions or concerns that arise at home. Special discussion: I discussed with the patient/guardian in detail that at this point there is no indication for admission to the hospital. It is understood, however, that if the symptoms persist or worsen the patient needs to return immediately for re-evaluation. 03:47 ED course: Patient likely with secondary cellulitis of foot, no indication for emergent trial attorney or surgery. Will discharge with p.o. antibiotics.. Administered Medications: 04:01 Drug: Trimethoprim-Sulfamethoxazole PO (160 mg-800 mg (DS) 1 tablet PO once Route: PO; lg3 04:02 Follow up: Response: No adverse reaction; Medication administered at discharge. lg3 04:01 Drug: Doxycycline PO 100 mg PO once Route: PO; lg3 04:02 Follow up: Response: No adverse reaction; Medication administered at discharge. lg3 Disposition Summary: 07/11/24 03:52 Discharge Ordered Notes: Location: Home rn Problem: an ongoing problem rn Symptoms: are unchanged rn Condition: Stable rn Diagnosis - Cellulitis of left lower limb rn - Cellulitis of left toe rn Followup: rn - With: Private Physician - When: As needed - Reason: Recheck today's complaints, Re-evaluation by your physician Discharge Instructions: - Discharge Summary Sheet rn - Cellulitis, Adult rn Forms: - Medication Reconciliation Form rn - Antibiotic biology intern - Prescription Opioid Use rn - Patient Portal Instructions rn - Leadership Thank You Letter rn Prescriptions: - Bactrim DS 800-160 mg Oral Tablet - take 1 tablet ORAL route every 12 hours for 10 days; 20 tablet; Refills: 0, rn Product Selection Permitted - Doxycycline Monohydrate 100 mg Oral Tablet - take 1 tablet ORAL route every 12 hours for 10 days; 20 tablet; Refills: 0, rn Product Selection Permitted Signatures: Jermaine Weir MD MD rn Able, Lacie, RN RN lg3
--- NOTE | 2024-07-11 03:52 | ER ---
Nurse's Notes [facility] Name: Walt Ramirez Jr Age: 23 yrs Sex: Male : 2000 Arrival Date: 07/11/2024 Time: 03:32 Bed 14 Private MD: Diagnosis: Cellulitis of left lower limb;Cellulitis of left toe Presentation: 07/11 03:45 Chief complaint: Patient states: diagnosed with athletes foot to left foot on the 18th. lg3 symptoms worsening. Coronavirus screen: Client denies travel out of the [place] in the last 14 days. At this time, the client does not indicate any symptoms associated with coronavirus-19. Ebola Screen: No symptoms or risks identified at this time. Initial Sepsis Screen: Does the patient meet any 2 criteria? No. Patient's initial sepsis screen is negative. Does the patient have a suspected source of infection? No. Patient's initial sepsis screen is negative. Risk Assessment: Do you want to hurt yourself or someone else? Patient reports no desire to harm self or others. Onset of symptoms is unknown. 03:45 Method Of Arrival: Ambulatory lg3 03:45 Acuity: INDU 5 lg3 Triage Assessment: 03:49 General: Appears in no apparent distress. comfortable, Behavior is calm, cooperative. lg3 Pain: Complains of pain in left foot. EENT: No deficits noted. No signs and/or symptoms were reported regarding the EENT system. Neuro: No deficits noted. Woodward Agitation-Sedation Scale (RASS): 0 - Alert and Calm Level of Consciousness is awake, alert, obeys commands, Oriented to person, place, time, situation. Cardiovascular: No deficits noted. Denies chest pain, shortness of breath, Capillary refill < 3 seconds Clubbing of nail beds is absent JVD is absent Patient's skin is warm and dry. Respiratory: No deficits noted. Airway is patent Respiratory effort is even, unlabored, Respiratory pattern is regular, symmetrical. GI: No deficits noted. No signs and/or symptoms were reported involving the gastrointestinal system. : No deficits noted. No signs and/or symptoms were reported regarding the genitourinary system. Derm: Skin is intact, is healthy with good turgor, Skin is dry, Skin is normal, Skin temperature is warm Rash noted that is red. Musculoskeletal: No deficits noted. Circulation, motion, and sensation intact. Range of motion: intact in all extremities. Historical: - Allergies: 03:49 No Known Allergies; lg3 - Home Meds: 03:49 None [Active]; lg3 - PMHx: 03:49 ADD/ADHD; Asthma; lg3 - PSHx: 03:49 left ankle (Asthma); lg3 - Immunization history:: Adult Immunizations up to date. - Infectious Disease History:: Denies. - Family history:: not pertinent. - Social history:: Smoking status: Patient denies any tobacco usage or history of. Patient/guardian denies using alcohol, street drugs. - Hospitalizations: : No recent hospitalization is reported. Screenin:52 [facility] ED Fall Risk Assessment (Adult) History of falling in the last 3 months, lg3 including since admission No falls in past 3 months (0 pts) Confusion or Disorientation No (0 pts) Intoxicated or Sedated No (0 pts) Impaired Gait No (0 pts) Mobility Assist Device Used No (0 pt) Altered Elimination No (0 pt) Score/Fall Risk Level 0 - 2 = Low Risk Oriented to surroundings, Maintained a safe environment, Educated pt \T\ family on fall prevention, incl call for assistance when getting out of bed, Assessed \T\ reinforced patient's understanding of fall precautions. Abuse screen: Denies threats or abuse. Denies injuries from another. Nutritional screening: No deficits noted. Tuberculosis screening: No symptoms or risk factors identified. Assessment: 03:52 General: see triage assessment. lg3 04:02 Reassessment: Patient appears in no apparent distress at this time. No changes from lg3 previously documented assessment. Patient and/or family updated on plan of care and expected duration. Pain level reassessed. Patient is alert, oriented x 3, equal unlabored respirations, skin warm/dry/pink. Vital Signs: 03:45 BP 141 / 85; Pulse 73; Resp 17 S; Temp 98.1(O); Pulse Ox 99% on R/A; Weight 97.52 kg lg3 (R); Height 6 ft. 0 in. (R); Pain 4/10; 03:45 Body Mass Index 29.16 (97.52 kg, 182.88 cm) lg3 03:45 Pain Scale: Adult lg3 ED Course: 03:37 Patient arrived in ED. gm2 03:38 Jermaine Weir MD is Attending Physician. rn 03:49 Triage completed. lg3 03:49 Arm band placed on right wrist. lg3 03:52 Patient has correct armband on for positive identification. Bed in low position. Call lg3 light in reach. Side rails up X 1. Client placed on continuous cardiac and pulse oximetry monitoring. NIBP monitoring applied. Door closed. Noise minimized. Warm blanket given. Pillow given. 04:01 Mellisa Alfred, RN is Primary Nurse. lg3 04:02 No provider procedures requiring assistance completed. Patient did not have IV access lg3 during this emergency room visit. Administered Medications: 04:01 Drug: Trimethoprim-Sulfamethoxazole PO (160 mg-800 mg (DS) 1 tablet PO once Route: PO; lg3 04:02 Follow up: Response: No adverse reaction; Medication administered at discharge. lg3 04:01 Drug: Doxycycline PO 100 mg PO once Route: PO; lg3 04:02 Follow up: Response: No adverse reaction; Medication administered at discharge. lg3 Medication: 03:52 VIS not applicable for this client. lg3 Outcome: 03:52 Discharge ordered by . rn 04:02 Discharged to home ambulatory, lg3 04:02 Condition: stable 04:02 Discharge instructions given to patient, Instructed on discharge instructions, follow up and referral plans. medication usage, Demonstrated understanding of instructions, follow-up care, medications, Prescriptions given X 2, 04:03 Patient left the ED. lg3 Signatures: Jermaine Weir MD MD rn Able, Lacie, RN RN 3 Camille Hardwick 2
[2024-07-11] MEDS ORDERED: DOXYCYCLINE 100 MG CAP PO ONE (03:58)
[2024-07-11] MEDS ORDERED: SMZ./TMP. 800/160 MG TABLET ONE (03:58)
[2024-07-11 14:15] VITALS: BP 141/85; TEMP 98.1; O2SAT 99
== END 2024-07-11 04:03 | disposition home or self-care (01) ==
LOC: ER 03:32
DX: L03.116 Cellulitis of left lower limb (principal); L03.032 Cellulitis of left toe; J45.909 Unspecified asthma, uncomplicated

== ENCOUNTER 2025-07-03 20:48 | Emergency (ER) | payer OTHER ==
--- OUTSIDE RECORDS SUMMARY | 2025-07-03 20:52 | XMS REPORT | Continuity of Care Document ---
Author Name Unknown Address [address] [facility] [place] [address] Organization [facility] MD Address [address] [facility] [place] [address] Care Team Providers Care Mailroom Manager Name Role Phone Provider, Unknown Home Health Primary Care Physi artemio Unavailable Luh France MD Attending Clinician [phone] [facility] Attending Clinician Unav ailable Annabel Michaud APRN Attending Clinician [phone] JAKOB KRISHNA Attending Clinician Unavail able Payers Payer Name Policy Type Policy Number Effective Date Expirati on Date Source [employer] CHOICE POS II [id number] 2023 00:00:00 Problems Condition Name Condition Details Condition Category Status Onset Date Resolution Date Last Treatment Date Treating Clinician Comments Source Displaced fracture of distal end of left fibula Displaced fracture of distal end of left fibula Disease Active 01-19 00:00: 00 [facility] Sprain of deltoid ligament of left ankle Sprain of deltoid ligament of left ankle Disease Active 01-19 00:00: 00 [facility] Acute left ankle pain Acute left ankle pain Disease Active 01-18 00:00: 00 [facility] Social History Social Habit Start Date Stop Date Quantity Comments Source History of tobacco use Cigarette Smoker [facility] Sexual orientation U [facility] Alcoholic beverage intake 2024-03-30 00:00:00 2024-03-30 00:00:00 Current drinker of alcohol (finding) [facility] History of Social function 2024-03-30 00:00:00 2024-03-30 00:00:00 [facility] Tobacco use and exposure 2024-01-20 00:00:00 2024-01-20 00:00:00 Smokeless tobacco non-user [facility] Alcohol Comment 2024-01-20 00:00:00 2024-01-20 00:00:00 occasionally [facility] Sex assigned at 2000 00:00:00 2000 00:00:00 [facility] Smoking Status Start Date Stop Date Source Smokes tobacco daily 2024-01-20 00:00:00 [facility] Medications Ordered Medication Name Filled Medication Name Start Date Stop Date Current Medication? Ordering Clinician Indication Dosage Frequency Signature (SIG) Comments Components Source HYDROcodone -acetaminop hen (Viborg) 7.5-325 MG tablet 02-02 00:00: 00 Yes [id number] 1{tbl} Take 1 tablet by mouth every 4 (four) hours if needed for severe pain. [facility] traMADol (Ultram) 50 MG tablet 02-02 00:00: 00 Yes [id number] 100mg Q6H Take 2 tablets (100 mg total) by mouth every 6 (six) hours if needed for moderate pain. [facility] ondansetron ODT (Zofran-ODT ) 4 MG disintegrat ing tablet 02-01 00:00: 00 02-09 04:59 :00 No [id number] 4mg Take 1 tablet (4 mg total) by mouth every 8 (eight) hours if needed for vomiting or nausea for up to 7 days. [facility] cephalexin (Keflex) 500 MG capsule 02-01 00:00: 00 02-07 04:59 :00 No [id number] 500mg [id number] 3D Take 1 capsule (500 mg total) by mouth in the morning and 1 capsule (500 mg total) at noon and 1 capsule (500 mg total) in the evening. Do all this for 5 days. [facility] acetaminoph en-codeine (Tylenol w/ Codeine #3) 300-30 MG tablet 01-26 00:00: 00 Yes [id number] 1{tbl} Take 1 tablet by mouth every 4 (four) hours if needed for severe pain. [facility] acetaminoph en-codeine (Tylenol w/ Codeine #3) 300-30 MG tablet 01-20 00:00: 00 01-26 00:00 :00 No [id number] 1{tbl} Take 1 tablet by mouth every 4 (four) hours if needed for severe pain. [facility] GABAPENTIN PO 01-19 08:18: 32 Yes Take by mouth if needed. [facility] traMADol (Ultram) 50 MG tablet 01-19 00:00: 00 Yes [id number] 105 100mg Q6H Take 2 tablets (100 mg total) by mouth every 6 (six) hours if needed for severe pain. [facility] Procedures Procedure Date / Time Performed Performing Clinicia n Source SPLINT APPLICATION 2024-01-20 14:00:00 [facility] Encounters Start Date/Time End Date/Time Encounter Type Admission Type Attending [facility] Care Facility Care Department Encounter ID Source 2024-04-27 09:15:00 2024-04-27 10:40:20 Outpatient [facility] [id number] [facility] 2024-04-27 09:15:00 2024-04-27 10:40:05 [facility] [id number] [facility] 2024-03-30 10:45:00 2024-03-30 11:29:59 Office Visit Luh [place] [facility] [id number] [facility] 2024-03-30 10:50:00 2024-03-30 11:29:51 Outpatient [facility] [id number] [facility] 2024-03-22 09:15:00 2024-03-22 09:15:00 Outpatient [facility] [id number] [facility] 2024-03-22 09:15:00 2024-03-22 09:15:00 Outpatient [facility] [id number] [facility] 2024-02-23 10:05:00 2024-02-23 11:14:00 Outpatient [facility] [id number] [facility] 2024-02-23 10:00:00 2024-02-23 11:13:45 Office Visit EdilmaLuh [place] [facility] [place] [id number] [facility] 2024-02-23 10:00:00 2024-02-23 10:00:00 Outpatient [facility] [id number] [facility] 2024-02-05 05:23:00 2024-02-05 11:30:00 [id number] 2024-02-05 08:30:00 2024-02-05 08:30:00 Outpatient [facility] [id number] [facility] 2024-02-04 09:00:00 2024-02-04 12:06:51 Office Visit [facility] [place] [id number] [facility] 2024-02-03 10:45:00 2024-02-03 10:45:00 Outpatient BRENDAARMINLUH NICK [facility] [id number] [facility] 2024-01-27 10:30:00 2024-01-27 11:25:43 Office Visit Annabel Michaud [place] [facility] [place] [id number] 1 [id number] [facility] 2024-01-20 00:00:00 2024-01-20 10:36:10 Outpatient [facility] [id number] [facility] 2024-01-20 08:25:00 2024-01-20 10:35:56 Outpatient [facility] [id number] [facility] 2024-01-20 09:00:00 2024-01-20 10:35:39 Office Visit Luh [place] [facility] [id number] [facility] 2024-01-20 10:30:00 2024-01-20 10:30:00 Outpatient JYOTHIWEROBRIDGER PREMA DANIELSW [facility] [id number] [facility] 2024-01-20 08:00:00 2024-01-20 08:00:00 Outpatient JYOTHIPatelBRIDGER DANIELSJAKOB [facility] [id number] [facility] Results Test Description Test Time Test Comments Results Result Comments Source Splint Application 14:00:00 Antony Trinh ? ? 01/20/2024 ?2:23 PMSplint Application Date/Time: 01/20/2024 9:00 AM Performed by: Antony Trinh Authorized by: Annabel Michaud APRN Consent given by: patientSite marked: site markedTimeout: Immediately prior to procedure a time out was called to verify the correct patient, procedure, equipment, database support and site/side marked as requiredInjuryLocation details: left ankleFracture type: trimalleolar fracture ?Pre-procedure assessmentneurovascularly intactRange of motion: reduced ?ProcedureImmobilization: splintSplint/Brace type: short legSupplies used: stockinette, cotton padding, Ortho-Glass and elastic bandagePost-procedure assessmentneurovascularly intactRange of motion: unchangedPatient tolerance: patient tolerated the procedure well with no immediate complications [facility]
[2025-07-03] MEDS ORDERED: HYDROCODONE/APAP 5/325 MG TAB ONE (21:49)
--- NOTE | 2025-07-03 22:45 | RAD REPORT ---
EXAMINATION: XR Tib Fib Right CLINICAL INDICATION: Male, 24 years old. PAIN TECHNIQUE: 2 view radiograph of the right tibia and fibula were obtained. COMPARISON: No prior exam. FINDINGS: No evidence of fracture or dislocation. Normal alignment. No evidence of arthropathy or oth er focal bone lesion. Soft tissues are unremarkable. IMPRESSION: No acute or significant abnormalities.
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
[2025-07-04 04:41] VITALS: TEMP 98.2
[2025-07-04 04:46] VITALS: BP 110/54; O2SAT 96
== END 2025-07-03 23:08 | disposition home or self-care (01) ==
LOC: ER 20:48
DX: S50.811A Abrasion of right forearm, initial encounter (principal); S80.11XA Contusion of right lower leg, initial encounter; V29.498A Other motorcycle driver injured in collision with other motor vehicles in traffic accident, initial encounter
CPT/HCPCS: 99283